=== PATIENT | female | born 1975 | race Caucasian/White ===

== ENCOUNTER 2019-01-16 23:56 | Emergency (ER) | payer OTHER ==
[~2019-01-16] VITALS: Ht 162.6 cm; Wt 87.7 kg
--- NOTE | ~2019-01-16 | EMS ---
[address] [address] EMS Patient Care Report Name: JOSH QUEZADA Room #: REG ARSENIO Workman#: [id number] Admission: 01/16/19 Attend Phys: Discharge: Date of : 75 Report #: [id number] THIS REPORT FOR: //name// Report Transmitted: 01/16/2019 23:39 EMS Care Summary [place], [place]/[facility] Incident [id number] @ 01/16/2019 23:22 Incident Location [address] [place] [address] [address] Patient JOSH QUEZADA Female, 43 Years 1975 Patient Address [address] [place] [address] [address], [place] [address] Patient History Other, Patient Allergies No known allergies, Patient Medications Other, Chief Complaint behavioral, hyperglycemia Disposition Transported No Lights/[place] Dispatch Reason Psychiatric Problem/Abnormal Behavior/Suicide Attempt Transported To [facility] Narrative pt complains of behavioral/ agitation, hyperglycemia. according to staff pt got physical with them over abnormal bs readings and pt's interpretation of medicine requirements. they report low bs reading earlier in the day prompting [address] [address] EMS Patient Care Report Name: JOSH QUEZADA Room #: REG ARSENIO Dawson.#: [id number] Admission: 01/16/19 Attend Phys: Discharge: Date of : 75 Report #: [id number] insulin to be withheld and then subsequent "hi" bs reading this evening. pt has no other complaints. pt found ambulatory inside nh room in company of staff/ [facility]. pt is aox3, gcs 15. abc's intact. radial strong/ reg, skin warm/ dry. no changes in route. Initial Vitals @23:44P: 112,R: 18,BP: 129/74,Pain: 0/10,GCS: 15,Glucose: -2,SpO2: 94,Revised Trauma: 12, Assessments @23:34MENTAL:Person Oriented,Time Oriented,Place Oriented,Event Oriented,SKIN:HEENT:LUNG SOUNDS:ABDOMEN:PELVIS//GI:EXTREMITIES:Capillary Refill: Right Upper: < 2 Sec,PULSE:Radial: 2+ Normal,NEURO:No Abnormalities, Impression Behavioral/psychiatric episode Procedures @23:34ALS AssessmentResponse: UnchangedSucceeded Timeline 23:20,Call Received 23:20,Dispatch Notified 23:22,Dispatched 23:25,En Route 23:31,On Scene 23:34,At Patient 23:34,ALS Assessment,Response: UnchangedSucceeded, 23:44,BP: 129/74 M,PULSE: 112,RR: 18 R,SPO2: 94 Ox,ETCO2: ,BG: -2,PAIN: 0,GCS: 15, 23:46,Depart Scene 23:52,At Destination 00:07,Call Closed Disclaimer v1.1 Copyright 2019 [employer] This EMS Care Summary contains data elements from the applicable legal record (which may be displayed differently). It is designed to provide pertinent information for the following purposes: continuity of care, clinical quality, and state data reporting. The complete legal record is available to ED staff and administrators of the receiving hospital in [facility]'s Patient Tracker. All data is provided "as is."
[~2019-01-16 23:56] MED LIST: ADULT LOW DOSE81 MG; AMBEREN; CLONAZEPAM; DEPAKOTE500 MG; DOXYCYCLINE 10100 MG PO; FISH OIL 1,001000 M1 PO; HYDROCHLOROTHIA25 M1; IBUPROFEN 800800 M1 PO; LAMICTAL; LANTUS; NORCO 5-325 TA1 EACH PO; NOVOLOG100 UNIT/1; PROPRANOLOL 4040 M1 PO; PROPRANOLOL 8080 M1; SEROQUEL 50 MG50 M1; WELLBUTRIN XL300 M1; ZPAK PO
[2019-01-17 00:36] LABS: BASOPHILS 0.9 % (0.0-2.0); EOSINOPHILS 1.1 % (0.0-3.0); HEMATOCRIT 39.8 % (37.0-47.0); HEMOGLOBIN 12.8 gm/dL (12.0-15.0); LYMPHOCYTES 22.3 % (24.0-44.0); MCH 30.2 pg (26.0-34.0); MCHC 32.2 g/dL (28.0-37.0); MCV 93.9 fL (80.0-100.0); MONOCYTES 8.1 % (1.0-8.0); PLATELET COUNT 194 thou/uL (150-400); POLYS 67.6 % (36.0-66.0); RBC 4.24 mil/uL (4.20-5.00); RDW 14.7 % (10.5-14.5); WBC 5.9 thou/uL (4.0-11.0)
[2019-01-17 00:45] LABS: CALCIUM 8.6 mg/dL (8.5-10.1); CREATININE 1.1 mg/dL (0.6-1.0); POTASSIUM 4.5 mmol/L (3.5-5.1)
[2019-01-17] MEDS ORDERED: MORPHINE SULFAT15 MG PO (01:37)
[2019-01-17] MEDS ORDERED: LIPITOR80 MG PO (01:38)
[2019-01-17] MEDS ORDERED: ARTIFICIAL TEAR1510 OPHTHALMIC (01:39)
[2019-01-17] MEDS ORDERED: BENZONATATE200 MG PO ×2 (01:40→01:43)
[2019-01-17] MEDS ORDERED: RENAL-VITE TAB0.8 MG PO (01:41)
[2019-01-17] MEDS ORDERED: SEROQUEL XR 30300 M1 PO (01:41)
[2019-01-17] MEDS ORDERED: TRAZODONE 150150 M1 PO (01:42)
[2019-01-17] MEDS ORDERED: SENNA PLUS TAB1 EACH PO (01:44)
[2019-01-17] MEDS ORDERED: DULOXETINE HCL60 MG PO (01:45)
[2019-01-17 06:07] VITALS: BP 116/79
== END 2019-01-17 06:10 ==
LOC: ER 23:56
PROVIDERS: Student in an Organized Health Care Education/Training Program
DX: S80.01XA Contusion of right knee, initial encounter (principal); E11.9 Type 2 diabetes mellitus without complications; I10 Essential (primary) hypertension; F41.9 Anxiety disorder, unspecified; F31.9 Bipolar disorder, unspecified; Z79.4 Long term (current) use of insulin; X58.XXXA Exposure to other specified factors, initial encounter; Y93.89 Activity, other specified; Y92.89 Other specified places as the place of occurrence of the external cause; Y99.8 Other external cause status

== ENCOUNTER 2019-02-08 11:53 | Emergency (ER) | payer OTHER ==
[~2019-02-08] VITALS: Ht 162.6 cm; Wt 90.7 kg
[~2019-02-08 11:53] MED LIST changes: +ARTIFICIAL TEAR1510 OPHTHALMIC; +BENZONATATE200 MG PO; +DULOXETINE HCL60 MG PO; +LIPITOR80 MG PO; +MORPHINE SULFAT15 MG PO; +RENAL-VITE TAB0.8 MG PO; +SENNA PLUS TAB1 EACH PO; +SEROQUEL XR 30300 M1 PO; +TRAZODONE 150150 M1 PO
[2019-02-08] MEDS ORDERED: FERREX 150 FOR1 EAC1 PO (13:09)
[2019-02-08 13:10] LABS: ABSOLUTE NEUTROPHILS 9.9 thou/uL (1.4-8.2); BASOPHILS 1.1 % (0.0-2.0); EOSINOPHILS 0.2 % (0.0-3.0); HEMATOCRIT 44.1 % (37.0-47.0); HEMOGLOBIN 14.4 gm/dL (12.0-15.0); LYMPHOCYTES 9.8 % (24.0-44.0); MCH 29.7 pg (26.0-34.0); MCHC 32.7 g/dL (28.0-37.0); MONOCYTES 4.3 % (1.0-8.0); PLATELET COUNT 225 thou/uL (150-400); POLYS 84.6 % (36.0-66.0); RBC 4.85 mil/uL (4.20-5.00); RDW 13.9 % (10.5-14.5); WBC 11.6 thou/uL (4.0-11.0)
[2019-02-08] MEDS ORDERED: MIRTAZAPINE15 M2 PO (13:10)
[2019-02-08] MEDS ORDERED: FUROSEMIDE 40 M40 MG PO (13:10)
[2019-02-08] MEDS ORDERED: MUCINEX600 MG PO (13:13)
[2019-02-08] MEDS ORDERED: PRO-STAT LIQUID30 M1 PO (13:14)
[2019-02-08] MEDS ORDERED: VITAMIN D35000 UNIT PO (13:15)
[2019-02-08] MEDS ORDERED: GVOKE SYRI1 MG/0.2 M IM (13:17)
[2019-02-08] MEDS ORDERED: ZINC SULFATE220 MG PO (13:17)
[2019-02-08] MEDS ORDERED: GLUCOSE GEL38 GM PO (13:18)
[2019-02-08] MEDS ORDERED: ONDANSETRON ODT4 MG PO (13:18)
[2019-02-08 13:28] LABS: CREATININE 0.9 mg/dL (0.6-1.0); POTASSIUM 4.2 mmol/L (3.5-5.1)
[2019-02-08 13:33] LABS: ALBUMIN 3.9 g/dL (3.4-5.0); DIRECT BILIRUBIN 0.1 mg/dL (<0.1-0.3); TOTAL BILIRUBIN 0.5 mg/dL (<0.1-1.0); TOTAL PROTEIN 7.3 g/dL (6.4-8.2)
[2019-02-08] MEDS ORDERED: VOLTAREN GEL 1100 GM TOP (13:50)
[2019-02-08] MEDS ORDERED: MIRALAX119 GM PO (13:50)
[2019-02-08 14:49] LABS: URINE BILIRUBIN NEGATIVE (Negative); URINE BLOOD NEGATIVE (Negative); URINE CLARITY CLEAR; URINE COLOR YELLOW; URINE GLUCOSE-RANDOM* 2+ (Negative); URINE KETONES 1+ (Negative); URINE LEUKOCYTES-REFLEX NEGATIVE (Negative); URINE NITRITE-REFLEX NEGATIVE (Negative); URINE PROTEIN (DIPSTICK) NEGATIVE (Negative); URINE SPECIFIC GRAVITY <= 1.005 (1.005-1.035); URINE UROBILINOGEN 0.2 E.U./dl (0.2-1.0)
[2019-02-08] MEDS ORDERED: ZOFRAN ODT4 MG DISSOLVE (14:55)
[2019-02-08] MEDS ORDERED: PEPCID20 MG PO (14:58)
[2019-02-08] MEDS ORDERED: ONDANSETRON HCL4 M2 PO (14:58)
[2019-02-08 15:01] VITALS: BP 119/80
== END 2019-02-08 15:10 | disposition home or self-care (01) ==
LOC: ER 11:53
PROVIDERS: Emergency Medicine; Physician Assistant
DX: R11.2 Nausea with vomiting, unspecified (principal); R19.7 Diarrhea, unspecified; F31.9 Bipolar disorder, unspecified; I10 Essential (primary) hypertension; F41.9 Anxiety disorder, unspecified; E11.9 Type 2 diabetes mellitus without complications; F17.290 Nicotine dependence, other tobacco product, uncomplicated; Z86.14 Personal history of Methicillin resistant Staphylococcus aureus infection